=== PATIENT | female | born 1980 | race African-American/Black ===

== ENCOUNTER 2018-12-06 21:04 | Emergency (ER) | payer MEDICAID ==
[~2018-12-06] VITALS: Ht 167.6 cm; Wt 74.0 kg
[~2018-12-06 21:04] MED LIST: ALBU2.5V13 IH; PHEN-434 PO
[2018-12-06] MEDS ORDERED: CEPHALEXIN 250MG CAPSULE PO ONE (22:45)
[2018-12-07 01:31] VITALS: BP 127/81
== END 2018-12-07 01:49 | disposition home or self-care (01) ==
LOC: ER 21:40
DX: L03.115 Cellulitis of right lower limb (principal); F41.9 Anxiety disorder, unspecified; R56.9 Unspecified convulsions; I10 Essential (primary) hypertension; J45.909 Unspecified asthma, uncomplicated; W01.0XXA Fall on same level from slipping, tripping and stumbling without subsequent striking against object, initial encounter; Y93.9 Activity, unspecified; Y92.9 Unspecified place or not applicable; Z88.1 Allergy status to other antibiotic agents; Z91.011 Allergy to milk products
CPT/HCPCS: 73562; 99283

== ENCOUNTER 2019-01-30 12:05 | Emergency (ER) | payer MEDICAID ==
[~2019-01-30] VITALS: Ht 167.6 cm; Wt 66.0 kg
[2019-01-30] MEDS ORDERED: SODIUM CHLORIDE 0.9% 1,000 ML IV ONE (13:56)
[2019-01-30] MEDS ORDERED: IPRATROPIUM/ALBUTEROL 0.5-3(2.5)MG/3ML NEB HHN ONE (14:00)
[2019-01-30 14:23] LABS: BASOPHILS % 0.5 % (0.0-2.0); EOSINOPHILS % 2.6 % (0.0-5.0); HEMATOCRIT. 41.1 % (36.0-48.0); HEMOGLOBIN. 13.2 g/dL (12.0-16.0); LYMPHOCYTES % 26.3 % (20.0-50.0); MEAN CORPUSCULAR HEMOGLOBIN 24.7 pg (28.0-32.0); MEAN CORPUSCULAR VOLUME 77.1 fL (81.0-99.0); MEAN PLATELET VOLUME 9.1 fl (7.4-10.4); MONOCYTES % 7.3 % (2.0-8.0); NEUTROPHILS % 63.3 % (40.0-76.0); PLATELET 241 x1000/uL (130-400); RED BLOOD CELL COUNT 5.33 mill/uL (4.2-5.4); RED CELL DISTRIBUTION WIDTH 14.3 % (11.6-14.6)
[2019-01-30 14:29] LABS: CHLORIDE 107 mEq/L (98-107)
[2019-01-30 14:33] LABS: ETHANOL BLOOD < 10 mg/dL
[2019-01-30 17:02] LABS: CLARITY URINE CLOUDY (CLEAR); COLOR URINE YELLOW (YELLOW); KETONES URINE 2+ (NEGATIVE); LEUKOCYTE ESTERASE URINE TRACE (NEGATIVE); NITRITE URINE POSITIVE (NEGATIVE); OCCULT BLOOD URINE NEGATIVE (NEGATIVE); PROTEIN URINE TRACE (NEGATIVE); SPECIFIC GRAVITY URINE 1.027 (1.005-1.030)
[2019-01-30 17:16] LABS: *AMPHETAMINES SCREEN URINE NEGATIVE (NEGATIVE); *BARBITURATES SCREEN URINE NEGATIVE (NEGATIVE)
[2019-01-30 17:17] LABS: *BENZODIAZEPINES SCREEN URINE NEGATIVE (NEGATIVE); OPIATES URINE SCREEN NEGATIVE (NEGATIVE)
[2019-01-30 17:18] LABS: METHADONE URINE SCREEN NEGATIVE (NEGATIVE)
[2019-01-30 17:27] LABS: *COCAINE SCREEN URINE PRESUMTIVE POSITIVE (NEGATIVE)
[2019-01-30 17:28] LABS: CANNABINOID URINE SCREEN PRESUMTIVE POSITIVE (NEGATIVE); PHENCYCLIDINE URINE SCREEN PRESUMTIVE POSITIVE (NEGATIVE)
[2019-01-31 04:50] VITALS: BP 109/69
== END 2019-01-31 04:57 | disposition home or self-care (01) ==
LOC: ER 12:05
DX: F32.9 Major depressive disorder, single episode, unspecified (principal); F16.10 Hallucinogen abuse, uncomplicated; J45.909 Unspecified asthma, uncomplicated; F41.9 Anxiety disorder, unspecified; I10 Essential (primary) hypertension; F43.10 Post-traumatic stress disorder, unspecified; F17.210 Nicotine dependence, cigarettes, uncomplicated; Z88.1 Allergy status to other antibiotic agents; Z91.011 Allergy to milk products; Z79.899 Other long term (current) drug therapy
CPT/HCPCS: 36415; 71045; 80053; 80305; 80320; 81003; 85025; 93005; 94640; 99284; 99406; J7030; J7620; Z7610; G0480

== ENCOUNTER 2019-05-09 12:11 | Emergency (ER) | payer MEDICAID ==
[~2019-05-09] VITALS: Ht 175.3 cm; Wt 69.0 kg
[2019-05-09 12:13] VITALS: BP 153/88
== END 2019-05-09 12:27 | disposition left against medical advice (07) ==
LOC: ER 12:11
DX: R56.9 Unspecified convulsions (principal); Z53.21 Procedure and treatment not carried out due to patient leaving prior to being seen by health care provider

== ENCOUNTER 2019-07-18 17:51 | Emergency (ER) | payer MEDICAID ==
[~2019-07-18] VITALS: Ht 175.3 cm; Wt 59.0 kg
[2019-07-18 20:43] VITALS: BP 145/78
== END 2019-07-18 20:44 | disposition home or self-care (01) ==
LOC: ER 18:37
DX: T25.111A Burn of first degree of right ankle, initial encounter (principal); T31.0 Burns involving less than 10% of body surface; J45.909 Unspecified asthma, uncomplicated; I10 Essential (primary) hypertension; F16.10 Hallucinogen abuse, uncomplicated; Z88.1 Allergy status to other antibiotic agents; Z79.899 Other long term (current) drug therapy
CPT/HCPCS: 99281; 99283

== ENCOUNTER 2020-02-01 21:50 | Emergency (ER) | payer MEDICAID ==
[~2020-02-01] VITALS: Ht 175.3 cm; Wt 70.0 kg
[2020-02-01] MEDS ORDERED: KETOROLAC 30MG/ML VIAL IM ONE (22:30)
[2020-02-01 23:12] VITALS: BP 130/85
== END 2020-02-01 23:13 | disposition home or self-care (01) ==
LOC: ER 21:50
DX: S63.615A Unspecified sprain of left ring finger, initial encounter (principal); M79.645 Pain in left finger(s); X58.XXXA Exposure to other specified factors, initial encounter; Y93.9 Activity, unspecified; Y92.9 Unspecified place or not applicable; F41.9 Anxiety disorder, unspecified; J45.909 Unspecified asthma, uncomplicated; F32.9 Major depressive disorder, single episode, unspecified; I10 Essential (primary) hypertension; R56.9 Unspecified convulsions; Z88.1 Allergy status to other antibiotic agents; Z90.49 Acquired absence of other specified parts of digestive tract; Z91.011 Allergy to milk products; Z98.890 Other specified postprocedural states
CPT/HCPCS: 29130; 73130; 96372; 99283; J1885

== ENCOUNTER 2020-02-20 02:39 | Emergency (ER) | payer MEDICAID ==
[~2020-02-20] VITALS: Ht 175.3 cm; Wt 69.0 kg
[2020-02-20 05:47] VITALS: BP 119/74
== END 2020-02-20 05:49 | disposition home or self-care (01) ==
LOC: ER 03:47
DX: S61.215A Laceration without foreign body of left ring finger without damage to nail, initial encounter (principal); J44.9 Chronic obstructive pulmonary disease, unspecified; I10 Essential (primary) hypertension; F16.10 Hallucinogen abuse, uncomplicated; Z91.011 Allergy to milk products; Z88.1 Allergy status to other antibiotic agents; Z90.49 Acquired absence of other specified parts of digestive tract; X58.XXXA Exposure to other specified factors, initial encounter; Y93.89 Activity, other specified; Y92.89 Other specified places as the place of occurrence of the external cause; Y99.8 Other external cause status
CPT/HCPCS: 29130; 99283

== ENCOUNTER 2020-04-20 00:35 | Emergency (ER) | payer MEDICAID ==
[~2020-04-20] VITALS: Ht 175.3 cm; Wt 72.0 kg
[2020-04-20 00:38] VITALS: BP 172/85
== END 2020-04-20 01:45 | disposition left against medical advice (07) ==
LOC: ER 00:35
DX: J44.9 Chronic obstructive pulmonary disease, unspecified (principal); Z53.21 Procedure and treatment not carried out due to patient leaving prior to being seen by health care provider
CPT/HCPCS: 93005

== ENCOUNTER 2022-10-21 02:53 | Emergency (ER) | payer OTHER, MEDICAID ==
[~2022-10-21] VITALS: Ht 167.6 cm; Wt 73.0 kg
[2022-10-21 03:47] LABS: HEMATOCRIT 36.1 % (36.0-48.0); HEMOGLOBIN 11.7 g/dL (12.0-16.0); MEAN CORPUSCULAR VOLUME 74.2 fL (81.0-99.0); PLATELET 242 x1000/uL (130-400); RED BLOOD CELL COUNT 4.86 mill/uL (4.2-5.4); RED CELL DISTRIBUTION WIDTH 14.7 % (11.6-14.6)
[2022-10-21 03:54] LABS: CHLORIDE 103 mEq/L (98-107)
[2022-10-21 04:08] LABS: HCG SCREEN NEGATIVE
[2022-10-21] MEDS ORDERED: POTASSIUM CHLORIDE 20MEQ/PACKET PO SCH (10:00)
[2022-10-21 11:21] VITALS: BP 138/77
== END 2022-10-21 11:22 | disposition home or self-care (01) ==
LOC: ER 03:36
DX: R07.89 Other chest pain (principal); J44.9 Chronic obstructive pulmonary disease, unspecified; Z91.011 Allergy to milk products; Z88.8 Allergy status to other drugs, medicaments and biological substances; Z90.89 Acquired absence of other organs
CPT/HCPCS: 36415; 71045; 80053; 84484; 84703; 85027; 85379; 93005; 99285